=== PATIENT | female | born 1965 | race Caucasian/White ===

== ENCOUNTER 2019-06-18 19:36 | Emergency (ER) | payer MEDICAID ==
[~2019-06-18] VITALS: Ht 167.6 cm; Wt 75.0 kg
[2019-06-18 19:53] VITALS: BP 143/77; Ht 167.6 cm; Wt 75.0 kg
[2019-06-18] MEDS ORDERED: OMEPRAZOLE20 M1 (19:54)
[2019-06-18] MEDS ORDERED: CARBATROL 200200 MG (19:54)
[2019-06-18] MEDS ORDERED: PREDNISONE10 MG PO (21:09)
[2019-06-18] MEDS ORDERED: ZPAK PO (21:09)
[2019-06-18] MEDS ORDERED: FLUTICASONE PRO16 GM NASAL (21:09)
== END 2019-06-18 21:34 | disposition home or self-care (01) ==
LOC: D.ER 19:36
DX: L98.8 Other specified disorders of the skin and subcutaneous tissue (principal); R51 Headache